=== PATIENT | female | born 1965 | race Asian ===

== ENCOUNTER 2020-06-26 13:56 | Emergency (ER) | payer SELFPAY ==
[2020-06-26] MEDS ORDERED: LORazepam 2 MG/ML VIAL ONE (14:48)
[2020-06-26] MEDS ORDERED: NA CHLORIDE 0.9% 500 ML ONE (14:48)
[2020-06-26 14:52] LABS: Absolute Lymphocytes (CBC) 1.7 K/uL (0.7-4.9); Basophils % 0.9 % (0-1.3); Hematocrit 38.2 % (36.0-45.0); Lymphocytes % 27.4 % (15.3-44.8); MPV 8.6 fL (7.6-11.3); RBC Red Blood Cell Count 4.02 M/uL (3.86-4.86)
--- NOTE | 2020-06-26 15:20 | RAD REPORT ---
EXAM DESCRIPTION: RAD - Chest Single View - 06/26/2020 2:55 pm CLINICAL HISTORY: SOB Chest pain. COMPARISON: No comparisons FINDINGS: Portable technique limits examination quality. The lungs are grossly clear. The heart is normal in size. No displaced fractures. IMPRESSION: No acute intrathoracic process suspected.
[2020-06-26 15:37] LABS: Protime INR 1.08
[2020-06-26 15:50] LABS: ALT/SGPT 20 U/L (12-78); AST/SGOT 11 U/L (15-37); Albumin 3.3 g/dL (3.4-5.0); Alkaline Phosphatase 56 U/L (45-117); BUN Blood Urea Nitrogen 12 mg/dL (7-18); Bicarbonate 23 mmol/L (21-32); Bilirubin Direct 0.1 mg/dL (0-0.2); Bilirubin Total 0.4 mg/dL (0.2-1.0); Glucose Level 93 mg/dL (74-106); Magnesium 2.1 mg/dL (1.8-2.4); NT PRO-BNP 66 pg/mL (<125); Potassium 3.4 mmol/L (3.5-5.1); Protein, Total 6.3 g/dL (6.4-8.2); Sodium Level 145 mmol/L (136-145); Troponin (Emerg Dept Use Only) < 0.02 ng/mL (0.0-0.045)
[2020-06-26] MEDS ORDERED: POTASSIUM 25 MEQ EFFERV TAB ONE (17:19)
[2020-06-26] MEDS ORDERED: MECLIZINE HCL 12.5 MG TAB ONE (18:34)
[2020-06-26] MEDS ORDERED: NA CHLORIDE 0.9% 1,000 ML ONE (18:35)
--- NOTE | 2020-06-26 18:54 | ER ---
Nurse's Notes [facility] Name: Mayra Sinha Age: 54 yrs Sex: Female : 1965 Arrival Date: 06/26/2020 Time: 14:19 Bed 16 Private MD: Diagnosis: Anxiety disorder, unspecified Presentation: 06/26 14:19 Chief complaint: EMS states: pt was making a report at the police station and began tr6 having an anxiety attack. Coronavirus screen: Client denies travel out of the [place] in the last 14 days. Ebola Screen: Patient negative for fever greater than or equal to 101.5 degrees Fahrenheit, and additional compatible Ebola Virus Disease symptoms Patient denies exposure to infectious person. Patient denies travel to an Ebola-affected area in the 21 days before illness onset. Initial Sepsis Screen: Does the patient meet any 2 criteria? No. Patient's initial sepsis screen is negative. Does the patient have a suspected source of infection? No. Patient's initial sepsis screen is negative. Risk Assessment: Do you want to hurt yourself or someone else? Patient reports no desire to harm self or others. 14:19 Method Of Arrival: EMS: [facility] tr6 14:25 Acuity: RHETT 3 tr6 Triage Assessment: 14:24 General: Appears in no apparent distress. Behavior is cooperative, anxious, restless. tr6 Pain: Denies pain. EENT: No deficits noted. Neuro: No deficits noted. Cardiovascular: No deficits noted. Respiratory: No deficits noted. GI: No deficits noted. : No deficits noted. Derm: No deficits noted. Musculoskeletal: No deficits noted. Historical: - Allergies: 14:23 No Known Allergies; tr6 - Immunization history:: Adult Immunizations up to date. - Social history:: Smoking status: Patient denies any tobacco usage or history of. unknown. Screenin:25 Abuse screen: Denies threats or abuse. Denies injuries from another. Nutritional tr6 screening: No deficits noted. Tuberculosis screening: No symptoms or risk factors identified. Fall Risk None identified. Assessment: 14:19 Reassessment: see triage assessment. tr6 14:54 Reassessment: Point of Contact: Paresh (son): [phone]. 15:21 Reassessment: labs redrawn by lab. tr6 19:22 Reassessment: Provider at bedside explaining POC. Vital Signs: 14:23 BP 133 / 82; Pulse 75; Resp 18; Temp 98.6; Pulse Ox 100% ; tr6 15:37 BP 110 / 69; Pulse 63; Resp 18; Pulse Ox 100% ; tr6 17:03 BP 91 / 55; Pulse 58; Resp 18; Pulse Ox 100% ; tr6 17:27 BP 113 / 78; Pulse 64; Resp 18; Pulse Ox 100% ; tr6 ED Course: 14:19 Patient arrived in ED. tr6 14:21 Daryl Bah PA is PHCP. cp 14:21 Daryl Stewart MD is Attending Physician. cp 14:25 Triage completed. tr6 14:25 Patient has correct armband on for positive identification. Bed in low position. Side tr6 rails up X 1. 14:25 No provider procedures requiring assistance completed. tr6 14:55 XRAY Chest (1 view) In Process Unspecified. EDMS 17:39 CBC with Diff Sent. ss 17:39 Basic Metabolic Panel Sent. ss 17:58 Troponin I Sent. tr6 18:25 Patient notified of wait time. tr6 19:28 IV discontinued, intact, bleeding controlled, No redness/swelling at site. Administered Medications: 14:42 Drug: NS 0.9% 500 ml Route: IV; Rate: bolus; Site: left forearm; tr6 17:02 Follow up: IV Status: Completed infusion; IV Intake: 500ml tr6 14:48 Drug: Ativan (LORazepam) 0.5 mg Route: IVP; Site: left forearm; tr6 15:11 Follow up: Response: No adverse reaction; Anxiety decreased tr6 17:02 Drug: Potassium Effervescent Tablet 25 mEq Route: PO; tr6 17:51 Follow up: Response: No adverse reaction tr6 18:18 Drug: Meclizine 25 mg Route: PO; tr6 18:25 Follow up: Response: No adverse reaction tr6 18:18 Drug: NS 0.9% 1000 ml Route: IV; Rate: 1 bolus; Site: left forearm; tr6 19:25 CANCELLED (Physician Discretion): Scopolamine 1 patches Transdermal continuous cp Intake: 17:02 IV: 500ml; Total: 500ml. tr6 Outcome: 18:53 Discharge ordered by . cp 19:28 Discharged to home ambulatory. 19:28 Condition: stable 19:28 Discharge instructions given to patient, Instructed on discharge instructions, follow up and referral plans. no drinking with medication, no driving heavy equipment, medication usage, POC Demonstrated understanding of instructions, follow-up care, medications, POC Prescriptions given X 1. 19:28 Patient left the ED. Signatures: Dispatcher [employer] EDMS Adina Conn RN RN Daryl Bah PA PA cp Habalo, Winsy, RN RN Sammi Antony RN RN tr6 Corrections: (The following items were deleted from the chart) 14:25 14:23 BP 133 / 82; Pulse 75bpm; Resp 18bpm; Pulse Ox 100%; tr6 tr6 14:53 14:44 CORONAVIRUS+ drawn and sent. tr6 EDMS 17:03 15:37 BP 110 / 69; Pulse 33bpm; Resp 18bpm; Pulse Ox 100%; tr6 tr6
--- NOTE | 2020-06-26 18:54 | EDPHYS ---
Physician Documentation [facility] Name: Mayra Sinha Age: 54 yrs Sex: Female : 1965 Arrival Date: 06/26/2020 Time: 14:19 Bed 16 Private MD: ED Physician Daryl Stewart HPI: 06/26 15:10 This 54 yrs old Female presents to ER via EMS with complaints of Anxiety Attack. cp 15:10 The patient presents to the emergency department with anxiety. cp 15:10 Onset: The symptoms/episode began/occurred suddenly, today. Associated signs and cp symptoms: Pertinent positives; chest pain, shortness of breath, Pertinent negatives: abdominal pain, delusions, fever, hallucinations, substance abuse, suicide ideation. 15:10 EMS reports patient was at police station when she started having anxiety attack. cp Historical: - Allergies: 14:23 No Known Allergies; tr6 - Immunization history:: Adult Immunizations up to date. - Social history:: Smoking status: Patient denies any tobacco usage or history of. unknown. ROS: 15:11 Constitutional: Negative for body aches, chills, fever, poor PO intake. cp 15:11 Eyes: Negative for injury, pain, redness, and discharge. cp 15:11 ENT: Negative for ear pain, sore throat, difficulty swallowing, difficulty handling secretions. 15:11 Cardiovascular: Positive for chest pain, palpitations, Negative for edema. 15:11 Respiratory: Positive for cough, shortness of breath, Negative for wheezing. 15:11 Abdomen/GI: Negative for abdominal pain, nausea, vomiting, and diarrhea. 15:11 Neuro: Negative for altered mental status, dizziness, headache, syncope, weakness. 15:11 All other systems are negative. Exam: 15:11 ECG was reviewed by the Attending Physician. cp 15:15 Constitutional: The patient appears in no acute distress, alert, awake, cp non-diaphoretic, non-toxic, well developed, well nourished, anxious. 15:15 Head/Face: Normocephalic, atraumatic. cp 15:15 Eyes: Periorbital structures: appear normal, Conjunctiva: normal, no exudate, no injection, Sclera: no appreciated abnormality, Lids and lashes: appear normal, bilaterally. 15:15 ENT: External ear(s): are unremarkable, Nose: is normal, Mouth: Lips: moist, Oral mucosa: moist, Posterior pharynx: is normal, airway is patent. 15:15 Chest/axilla: Inspection: normal, Palpation: is normal, no crepitus, no tenderness. 15:15 Cardiovascular: Rate: normal, Rhythm: regular, Edema: is not appreciated, JVD: is not appreciated. 15:15 Respiratory: the patient does not display signs of respiratory distress, Respirations: normal, no use of accessory muscles, no retractions, labored breathing, is not present, Breath sounds: are clear throughout, no decreased breath sounds, no stridor, no wheezing. 15:15 Abdomen/GI: Inspection: abdomen appears normal, Palpation: abdomen is soft and non-tender, in all quadrants. 15:15 Back: pain, is absent, ROM is normal. 15:15 Neuro: Orientation: to person, place \T\ time. Mentation: able to follow commands, Motor: moves all fours, strength is normal, Sensation: no obvious gross deficits. Vital Signs: 14:23 BP 133 / 82; Pulse 75; Resp 18; Temp 98.6; Pulse Ox 100% ; tr6 15:37 BP 110 / 69; Pulse 63; Resp 18; Pulse Ox 100% ; tr6 17:03 BP 91 / 55; Pulse 58; Resp 18; Pulse Ox 100% ; tr6 17:27 BP 113 / 78; Pulse 64; Resp 18; Pulse Ox 100% ; tr6 MDM: 14:30 Differential diagnosis: acute psychotic break, depression, psychosis secondary to cp non-compliance, acute WI. 14:42 Patient medically screened. [facility] 18:52 Data reviewed: vital signs, nurses notes, lab test result(s), EKG, radiologic studies, cp plain films. 18:52 Test interpretation: by ED physician or midlevel provider: ECG, plain radiologic cp studies. Counseling: I had a detailed discussion with the patient and/or guardian regarding: the historical points, exam findings, and any diagnostic results supporting the discharge/admit diagnosis, lab results, radiology results, to return to the emergency department if symptoms worsen or persist or if there are any questions or concerns that arise at home. Response to treatment: the patient's symptoms have markedly improved after treatment, and as a result, I will discharge patient. 06/26 14:23 Order name: Basic Metabolic Panel cp 05 14:23 Order name: CBC with Diff cp 05/ 14:23 Order name: LFT's; Complete Time: 16:36 cp 05/ 14:23 Order name: Magnesium; Complete Time: 16:36 cp 05/07 14:23 Order name: NT PRO-BNP; Complete Time: 16:36 cp 05/07 14:23 Order name: PT-INR; Complete Time: 16:36 cp 05/ 14:23 Order name: Troponin (emerg Dept Use Only); Complete Time: 16:36 cp 05/07 14:23 Order name: XRAY Chest (1 view); Complete Time: 16:36 cp / 14:23 Order name: Basic Metabolic Panel; Complete Time: 16:36 EDMS 05/07 18:35 Interpretation: Normal except: K 3.4; CL 115. cp 05/07 14:24 Order name: CBC with Automated Diff; Complete Time: 16:36 EDMS /07 15:36 Order name: SARS-COV-2 RT PCR; Complete Time: 16:36 EDMS /07 17:41 Order name: Troponin I; Complete Time: 18:35 cp 05/07 14:23 Order name: EKG; Complete Time: 14:24 cp /07 14:23 Order name: Cardiac monitoring; Complete Time: 14:44 cp /07 14:23 Order name: EKG - Nurse/Tech; Complete Time: 14:59 cp /07 14:23 Order name: IV Saline Lock; Complete Time: 14:44 cp /07 14:23 Order name: Labs collected and sent; Complete Time: 14:48 cp / 14:23 Order name: O2 Per Protocol; Complete Time: 14:44 cp /07 14:23 Order name: O2 Sat Monitoring; Complete Time: 14:44 cp /07 14:58 Order name: Labs - recollect needed: recollect the [facility] lab will be printing eb labels ; Complete Time: 15:21 EC:11 Rate is 63 beats/min. Rhythm is regular. [place] interval is normal. QRS interval is normal. cp QT interval is normal. T waves are Inverted in lead aVR. Interpreted by me. Reviewed by me. Administered Medications: 14:42 Drug: NS 0.9% 500 ml Route: IV; Rate: bolus; Site: left forearm; tr6 17:02 Follow up: IV Status: Completed infusion; IV Intake: 500ml tr6 14:48 Drug: Ativan (LORazepam) 0.5 mg Route: IVP; Site: left forearm; tr6 15:11 Follow up: Response: No adverse reaction; Anxiety decreased tr6 17:02 Drug: Potassium Effervescent Tablet 25 mEq Route: PO; tr6 17:51 Follow up: Response: No adverse reaction tr6 18:18 Drug: Meclizine 25 mg Route: PO; tr6 18:25 Follow up: Response: No adverse reaction tr6 18:18 Drug: NS 0.9% 1000 ml Route: IV; Rate: 1 bolus; Site: left forearm; tr6 19:25 CANCELLED (Physician Discretion): Scopolamine 1 patches Transdermal continuous cp Disposition: 06/26/20 18:53 Discharged to Home. Impression: Anxiety disorder, unspecified. - Condition is Stable. - Discharge Instructions: Panic Attacks. - Prescriptions for Ativan 0.5 mg Oral Tablet - take 1 tablet by ORAL route every 12 hours As needed; 10 tablet. - Medication Reconciliation Form, Thank You Letter, Antibiotic Education, Prescription Opioid Use form. - Follow up: Private Physician; When: 2 - 3 days; Reason: Recheck today's complaints. - Problem is new. - Symptoms have improved. Addendum: 06/29/2020 08:48 Co-signature as Attending Physician, Daryl Stewart MD I agree with the assessment and c [place] plan of care. Signatures: Dispatcher [employer] Daryl Clayton MD MD cha Page, Corey, PA Lavern Villatoro cp, RN RN Paris Syed Tiffany RN RN tr6 Corrections: (The following items were deleted from the chart) 06/26 14:53 14:24 CORONAVIRUS+MR.LAB.BRZ ordered. [facility] 19:25 19:22 Scopolamine Patch 1 patches Transdermal continuous ordered. [facility] 19:28 18:53 06/26/2020 18:53 Discharged to Home. Impression: Anxiety disorder, unspecified. Condition is Stable. Forms are Medication Reconciliation Form, Thank You Letter, Antibiotic Education, Prescription Opioid Use. Follow up: Private Physician; When: 2 - 3 days; Reason: Recheck today's complaints. Problem is new. Symptoms have improved. cp
[2020-06-26 19:34] VITALS: TEMP 98.6; O2SAT 100
[2020-06-26 19:38] VITALS: BP 113/78
== END 2020-06-26 19:28 | disposition home or self-care (01) ==
LOC: ER 13:56
DX: F41.9 Anxiety disorder, unspecified (principal)
CPT/HCPCS: 36415; 71045; 80048; 80076; 83735; 83880; 84484; 85025; 85610; 93005; 96361; 96374; 99284; J7030; J7040; U0003

== ENCOUNTER 2022-01-28 09:36 | Emergency (ER) | payer SELFPAY ==
[2022-01-28 11:54] LABS: Urine Blood Trace-intact (Negative); Urine Glucose Negative (Negative); Urine Protein Negative (Negative); Urine Specific Gravity 1.025 (1.005-1.030)
[2022-01-28 11:56] LABS: Absolute Lymphocytes (CBC) 1.7 K/uL (0.7-4.9); Hematocrit 41.8 % (36.0-45.0); Lymphocytes % 33.6 % (15.3-44.8); MCV 95.3 fL (80-100); MPV 8.1 fL (7.6-11.3); RBC Red Blood Cell Count 4.39 M/uL (3.86-4.86)
[2022-01-28 12:09] LABS: Urine Mucus 1+ /HPF (None Seen)
[2022-01-28 12:18] LABS: Albumin 3.9 g/dL (3.4-5.0); Bilirubin Total 0.4 mg/dL (0.2-1.0); Potassium 3.8 mmol/L (3.5-5.1); Protein, Total 7.2 g/dL (6.4-8.2)
--- NOTE | 2022-01-28 12:30 | RAD REPORT ---
EXAM DESCRIPTION: CT - Abdomen Pelvis W Contrast - 01/28/2022 12:15 pm CLINICAL HISTORY: Nausea/vomitingx1 week COMPARISON: No comparisonsNo comparisons TECHNIQUE: Biphasic, helical CT imaging of the abdomen and pelvis was performed following 100 ml non -ionic IV contrast. Oral contrast: No. All CT scans are performed using dose optimization technique as appropriate and may include automated exposure control or mA/KV adjustment according to patient size. FINDINGS: No suspicious findings in the lung bases. The liver, spleen, and pancreas show no suspicious findings. Gallbladder and biliary tree are also wi thout suspicious finding. Symmetric renal function is seen with no hydronephrosis or suspicious renal mass. No pyelonephritis o r acute parenchymal process. No bladder abnormalities. Bladder is contracted which limits assessment. No bladder calculi are seen. No adrenal abnormalities. No stomach or small bowel abnormality. The appendix is normal. Moderate stool volume is present diste nding the rectum and tortuous sigmoid colon. A primary colon process is not seen. No uterine abnormality seen. Ovaries also appear to be normal but are somewhat difficult to distingui sh due to being isodense to adjacent unopacified bowel. No free air, free fluid or inflammatory stra nding. No hernia, mass or bulky lymphadenopathy. No suspicious bony findings. IMPRESSION: Contrast enhanced CT abdomen and pelvis showing no acute or emergent finding. Nonacute findings detailed in the body of the report.
[2022-01-28] MEDS ORDERED: ONDANSETRON 4 MG/2 ML VIAL ONE (13:43)
[2022-01-28] MEDS ORDERED: NA CHLORIDE 0.9% 1,000 ML ONE (13:43)
--- NOTE | 2022-01-28 13:57 | RAD REPORT ---
EXAM DESCRIPTION: RAD - Chest Single View - 01/28/2022 1:52 pm CLINICAL HISTORY: COUGHabdominal pain COMPARISON: Portable 06/26/2020 TECHNIQUE: AP portable chest image was obtained 01/28/2022 1:52 pm . FINDINGS: No focal lung parenchymal process seen. Adjusting for technique differences, interstitial pattern is not clearly different from comparison. Heart and vasculature are normal. No measurable pleural effusion and no pneumothorax. No acute bony abnormality seen. No acute aortic findings suspected. IMPRESSION: No acute cardiopulmonary process. No significant change from comparison study.
--- NOTE | 2022-01-28 14:50 | EDPHYS ---
Physician Documentation [facility] Name: Mayra Sinha Age: 56 yrs Sex: Female : 1965 Arrival Date: 01/28/2022 Time: 09:38 Bed DIS4 Private MD: DALI Physician Alex Theodore HPI: 01/28 10:48 This 56 yrs old Female presents to ER via Ambulatory with complaints of Vomiting. rt 10:48 The patient presents to the emergency department with nausea, vomiting. Onset: The rt symptoms/episode began/occurred 1 week(s) ago. The symptoms are aggravated by food , The symptoms are alleviated by nothing. Associated signs and symptoms: The patient has no apparent associated signs or symptoms. Severity of symptoms: At their worst the symptoms were moderate. Patient presents to the ED with nausea, vomiting, intermittently for the past 8 days. She has had similar symptoms about a year ago, improved with medications. The patient denies significant abdominal pain, other acute complaints at this time. Symptoms are moderate severity, no other aggravating or alleviating factors.. Historical: - Allergies: 10:28 No Known Allergies; ss - Home Meds: 10:28 None [Active]; ss - PMHx: 10:28 None; ss - PSHx: 10:28 None; ss - Immunization history:: Client reports receiving the 2nd dose of the Covid vaccine. - Social history:: Smoking status: Patient denies any tobacco usage or history of. - Family history:: not pertinent. ROS: 10:48 Constitutional: Negative for fever, chills, and weight loss, Eyes: Negative for injury, rt pain, redness, and discharge, ENT: Negative for injury, pain, and discharge, Cardiovascular: Negative for chest pain, palpitations, and edema, Respiratory: Negative for shortness of breath, cough, wheezing, and pleuritic chest pain, MS/Extremity: Negative for injury and deformity, Skin: Negative for injury, rash, and discoloration, Neuro: Negative for headache, weakness, numbness, tingling, and seizure, Psych: Negative for depression, anxiety, suicide ideation, homicidal ideation, and hallucinations. 10:48 Abdomen/GI: Positive for nausea and vomiting, Negative for abdominal pain, diarrhea. Exam: 10:48 Constitutional: This is a well developed, well nourished patient who is awake, alert, rt and in no acute distress. Head/Face: Normocephalic, atraumatic. Eyes: Pupils equal round and reactive to light, extra-ocular motions intact. Lids and lashes normal. Conjunctiva and sclera are non-icteric and not injected. Cornea within normal limits. Periorbital areas with no swelling, redness, or edema. ENT: Nares patent. No nasal discharge, no septal abnormalities noted. Tympanic membranes are normal and external auditory canals are clear. Oropharynx with no redness, swelling, or masses, exudates, or evidence of obstruction, uvula midline. Mucous membranes moist. Neck: Trachea midline, no thyromegaly or masses palpated, and no cervical lymphadenopathy. Supple, full range of motion without nuchal rigidity, or vertebral point tenderness. No Meningismus. Chest/axilla: Normal chest wall appearance and motion. Nontender with no deformity. No lesions are appreciated. Cardiovascular: Regular rate and rhythm with a normal S1 and S2. No gallops, murmurs, or rubs. Normal PMI, no JVD. No pulse deficits. Respiratory: Lungs have equal breath sounds bilaterally, clear to auscultation and percussion. No rales, rhonchi or wheezes noted. No increased work of breathing, no retractions or nasal flaring. Abdomen/GI: Soft, non-tender, with normal bowel sounds. No distension or tympany. No guarding or rebound. No evidence of tenderness throughout. Skin: Warm, dry with normal turgor. Normal color with no rashes, no lesions, and no evidence of cellulitis. MS/ Extremity: Pulses equal, no cyanosis. Neurovascular intact. Full, normal range of motion. Neuro: Awake and alert, GCS 15, oriented to person, place, time, and situation. Cranial nerves II-XII grossly intact. Motor strength 5/5 in all extremities. Sensory grossly intact. Cerebellar exam normal. Normal gait. Psych: Awake, alert, with orientation to person, place and time. Behavior, mood, and affect are within normal limits. Vital Signs: 10:25 BP 111 / 82; Pulse 74; Resp 22; Temp 98.2(TE); Pulse Ox 100% on R/A; Weight 52.16 kg; ss Pain 3/10; MDM: 10:37 Patient medically screened. rt 15:05 Differential diagnosis: cholecystitis, appendicitis, gastroenteritis. Data reviewed: rt vital signs, nurses notes, old medical records. 15:05 ED course: Patient presents to the ED complaining of nausea. At the time of triage, she rt had 0 complaints of dyspnea. As with the discharge the patient after normal work-up to include CT scan, blood work, patient stated that she was having shortness of breath for about a year now. The chest x-ray was unremarkable. Explained the patient in depth has no chronic symptoms should be managed in the clinic setting. I explained this to her in depth using a Mandarin official court interpreter. The patient has stable vital signs. Symptoms are not typical of an acute coronary syndrome, pulmonary embolism. No further work-up is indicated at this time, she is stable for outpatient care.. 01/28 10:38 Order name: CBC with Diff; Complete Time: 12:30 rt 01/28 10:38 Order name: CMP; Complete Time: 12:30 rt 01/28 10:38 Order name: Lipase; Complete Time: 12:30 rt 01/28 10:38 Order name: Urine Microscopic Only; Complete Time: 12:30 rt 01/28 11:54 Order name: Urine Dipstick-Ancillary; Complete Time: 12:30 EDMS 01/28 12:28 Order name: CREATININE WHOLE BLOOD; Complete Time: 12:30 EDMS 01/28 10:38 Order name: CT Abd/Pelvis - IV Contrast Only; Complete Time: 12:31 rt 01/28 10:38 Order name: IV Saline Lock; Complete Time: 11:47 rt 01/28 10:38 Order name: Labs collected and sent; Complete Time: 11:47 rt 01/28 10:38 Order name: Urine Dipstick-Ancillary (obtain specimen); Complete Time: 11:47 rt 01/28 12:37 Order name: Chest Single View XRAY; Complete Time: 14:04 rt Administered Medications: 13:42 Drug: Zofran (Ondansetron) 4 mg Route: IVP; Site: right antecubital; jh5 13:47 Drug: NS 0.9% 1000 ml Route: IV; Rate: 1 bolus; Site: right antecubital; jh5 Disposition Summary: 01/28/22 14:49 Discharge Ordered Location: Home rt Problem: an ongoing problem rt Symptoms: have improved rt Condition: Stable rt Diagnosis - Nausea rt Followup: rt - With: Private Physician - When: 2 - 3 days - Reason: Discharge Instructions: - Discharge Summary Sheet rt - Nausea, Adult rt Forms: - Medication Reconciliation Form rt - Thank You Letter rt - Antibiotic Education rt - Prescription Opioid Use rt Prescriptions: - Zofran 4 mg Oral Tablet - take 1 tablet by ORAL route every 12 hours As needed; 20 tablet; Refills: 0, rt Product Selection Permitted Signatures: Dispatcher [employer] Adina Norris RN RN ss Adeola Weiner RN RN jh5 Alex Theodore MD MD rt
--- NOTE | 2022-01-28 14:50 | ER ---
Nurse's Notes [facility] Name: Mayra Sinha Age: 56 yrs Sex: Female : 1965 Arrival Date: 01/28/2022 Time: 09:38 Bed DIS4 Private MD: Diagnosis: Nausea Presentation: 01/28 10:25 Chief complaint: Patient states: N/V and abd pain that has been ongoing for 1 week. Pt ss reports she was seen here a year ago for the same thing. Coronavirus screen: Client denies travel out of the [place] in the last 14 days. Ebola Screen: Patient denies exposure to infectious person. Patient denies travel to an Ebola-affected area in the 21 days before illness onset. Initial Sepsis Screen: Does the patient meet any 2 criteria? No. Patient's initial sepsis screen is negative. Does the patient have a suspected source of infection? No. Patient's initial sepsis screen is negative. Risk Assessment: Do you want to hurt yourself or someone else? Patient reports no desire to harm self or others. Onset of symptoms was January 21, 2022. 10:25 Method Of Arrival: Ambulatory ss 10:25 Acuity: RHETT 3 ss Triage Assessment: 15:31 General: Appears in no apparent distress. iw Historical: - Allergies: 10:28 No Known Allergies; ss - Home Meds: 10:28 None [Active]; ss - PMHx: 10:28 None; ss - PSHx: 10:28 None; ss - Immunization history:: Client reports receiving the 2nd dose of the Covid vaccine. - Social history:: Smoking status: Patient denies any tobacco usage or history of. - Family history:: not pertinent. Screenin:31 Abuse screen: Denies threats or abuse. Denies injuries from another. Nutritional iw screening: No deficits noted. Tuberculosis screening: No symptoms or risk factors identified. Fall Risk None identified. Assessment: 15:30 Reassessment: Patient appears in no apparent distress at this time. Patient and/or iw family updated on plan of care and expected duration. Pain level reassessed. pt requesting copies of films and CD. Pain: Denies pain. GI: Abdomen is non-distended. Vital Signs: 10:25 BP 111 / 82; Pulse 74; Resp 22; Temp 98.2(TE); Pulse Ox 100% on R/A; Weight 52.16 kg; ss Pain 3/10; ED Course: 09:38 Patient arrived in ED. as 10:28 Triage completed. ss 10:28 Arm band placed on right wrist. ss 10:30 Alex Theodore MD is Attending Physician. rt 11:47 CBC with Diff Sent. zm 11:47 CMP Sent. zm 11:47 Lipase Sent. zm 11:47 Urine Microscopic Only Sent. zm 11:47 Inserted saline lock: 20 gauge in right antecubital area, using aseptic technique. zm Blood collected. 12:17 CT Abd/Pelvis - IV Contrast Only In Process Unspecified. EDMS 13:54 Chest Single View XRAY In Process Unspecified. EDMS 15:30 Virginia Bowers, RN is Primary Nurse. iw 15:31 IV discontinued, intact, bleeding controlled, No redness/swelling at site. Pressure iw dressing applied. Administered Medications: 13:42 Drug: Zofran (Ondansetron) 4 mg Route: IVP; Site: right antecubital; [facility] 13:47 Drug: NS 0.9% 1000 ml Route: IV; Rate: 1 bolus; Site: right antecubital; 5 Medication: 15:31 VIS not applicable for this client. iw Outcome: 14:49 Discharge ordered by . rt 15:31 Discharged to home ambulatory. iw 15:31 Condition: good 15:31 Discharge instructions given to patient, Instructed on discharge instructions, follow up and referral plans. medication usage, Demonstrated understanding of instructions, follow-up care, medications, Prescriptions given X 1. 15:32 Patient left the ED. iw Signatures: Dispatcher [employer] Jami Ashraf Irene, Adina Blanco RN, RN RN ss Rees, Jessica RN RN 5 Radha Crane Ryan, MD MD rt
[2022-01-28 17:37] VITALS: BP 111/82; TEMP 98.2; O2SAT 100
== END 2022-01-28 15:32 | disposition home or self-care (01) ==
LOC: ER 09:36
DX: R11.0 Nausea (principal)
CPT/HCPCS: 36415; 71045; 74177; 80053; 81003; 81015; 82565; 83690; 85025; 96374; 99284; J2405; J7030; Q9967